=== PATIENT | female | born 1995 | race Caucasian/White ===

== ENCOUNTER 2016-10-09 00:45 | Observation (INO) | payer MEDICAID, OTHER ==
[~2016-10-09] VITALS: Ht 152.4 cm; Wt 61.2 kg
[2016-10-09] MEDS ORDERED: PNV-DHA1 SGL PO (02:11)
[2016-10-09] MEDS ORDERED: TERBUTALINE 1 MG/ML VIAL SUBQ SCH (02:30)
[2016-10-09] MEDS ORDERED: ACETAMINOPHEN 325 MG TAB PO PRN (02:30)
[2016-10-09] MEDS ORDERED: ACETAMINOPHEN 325 MG TAB ONE (02:34)
[2016-10-09] MEDS ORDERED: TERBUTALINE 1 MG/ML VIAL SUBQ ONE (02:34)
== END 2016-10-09 02:43 | disposition left against medical advice (07) ==
LOC: MLD 00:45
PROVIDERS: ADMIT Obstetrics & Gynecology; ATTEND Obstetrics & Gynecology
DX: O26.899 Other specified pregnancy related conditions, unspecified trimester (principal); R10.30 Lower abdominal pain, unspecified; Z3A.00 Weeks of gestation of pregnancy not specified
CPT/HCPCS: 81000; G0378

== ENCOUNTER 2017-03-19 01:53 | Emergency (ER) | payer OTHER ==
[~2017-03-19] VITALS: Ht 154.9 cm; Wt 56.7 kg
[~2017-03-19 01:53] MED LIST: PREN1SGL25 PO
--- NOTE | 2017-03-19 01:53 | NUR ---
PATIENT BIB BLS TO ER BED 3. Addendum: 03/19/17 at 0309 by [email or web address] PATIENT BIB ALS TO ER BED 3.
--- NOTE | 2017-03-19 02:15 | NUR ---
PATIENT BEING EVALUATED BY DR. CONTI.
[2017-03-19 02:22] VITALS: BP 124/78
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
--- NOTE | 2017-03-19 03:11 | NUR ---
PT REFUSES HER BLOOD TO BE DRAWN. MARIBEL ELIZABETH NOTIFIED.
--- NOTE | 2017-03-19 04:15 | NUR ---
PT RESTING IN BED ASLEEP, ON MONITOR, VSS.
[2017-03-19 04:22] LABS: APPEARANCE,URINE CLEAR (CLEAR); BILIRUBIN,URINE NEGATIVE (NEGATIVE); BLOOD, URINE TRACE-L (NEGATIVE); COLOR,URINE YELLOW (YELLOW); LEUKOCYTE ESTERASE ,URINE NEGATIVE (NEGATIVE); NITRITE, URINE NEGATIVE (NEGATIVE); PH,URINE 5.5 (5.0-9.0); PROTEIN,URINE NEGATIVE (NEGATIVE); UGLUCOSE NEGATIVE (NEGATIVE); UROBILINOGEN,URINE 0.2 EU/dL (0.2 - 1)
[2017-03-19 04:31] LABS: BACTERIA,URINE OCCASSIONAL /HPF (None Seen); RBC,URINE 0-5 (RARE) /HPF (0-5); SQUAMOUS EPITHELIAL CELL,UR 4-10 (MOD) /LPF (0-3 (FEW)); WBC,URINE 0-5 (RARE) /HPF (0-5)
[2017-03-19 05:00] VITALS: BP 107/62
--- NOTE | 2017-03-19 05:00 | NUR ---
Patient discharged with v/s stable. Written and verbal after care instructions given and explained. Patient alert, oriented and verbalized understanding of instructions. Ambulatory with steady gait. All questions addressed prior to discharge. ID band removed. Patient advised to follow up with PMD OR RETURN TO ER IF CONDITION WORSENS. Rx of ZOFRAN, AND NORCO given. Patient educated on indication of medication including possible reaction and side effects. Opportunity to ask questions provided and answered.
== END 2017-03-19 05:00 | disposition home or self-care (01) ==
LOC: MED 01:53
DX: S06.0X9A Concussion with loss of consciousness of unspecified duration, initial encounter (principal); F10.129 Alcohol abuse with intoxication, unspecified; V89.2XXA Person injured in unspecified motor-vehicle accident, traffic, initial encounter; Y93.89 Activity, other specified; Y92.488 Other paved roadways as the place of occurrence of the external cause; Y99.8 Other external cause status
CPT/HCPCS: 70450; 71010; 81001; 81025; 99285

== ENCOUNTER 2017-08-15 12:57 | Emergency (ER) | payer OTHER ==
[~2017-08-15] VITALS: Ht 154.9 cm; Wt 54.9 kg
[2017-08-15 13:51] VITALS: BP 117/57
[2017-08-15 16:05] LABS: APPEARANCE,URINE TURBID (CLEAR); BILIRUBIN,URINE NEGATIVE (NEGATIVE); BLOOD, URINE 1+ (NEGATIVE); COLOR,URINE YELLOW (YELLOW); LEUKOCYTE ESTERASE ,URINE 2+ (NEGATIVE); NITRITE, URINE NEGATIVE (NEGATIVE); PH,URINE 5.5 (5.0-9.0); UGLUCOSE NEGATIVE (NEGATIVE)
[2017-08-15 16:17] LABS: RBC,URINE 3-10 (FEW) /HPF (0-5); WBC,URINE 80-100 /HPF (0-5)
[2017-08-15 17:17] VITALS: BP 111/65
== END 2017-08-15 17:17 | disposition home or self-care (01) ==
LOC: MED 12:57
DX: O20.0 Threatened abortion (principal); O23.41 Unspecified infection of urinary tract in pregnancy, first trimester; A60.00 Herpesviral infection of urogenital system, unspecified; Z3A.01 Less than 8 weeks gestation of pregnancy; Z79.899 Other long term (current) drug therapy
CPT/HCPCS: 76817; 81001; 87086; 99285; Q0092

== ENCOUNTER 2019-05-10 20:16 | Emergency (ER) | payer OTHER ==
[~2019-05-10] VITALS: Ht 152.4 cm; Wt 55.8 kg
[2019-05-10 20:25] VITALS: BP 111/61
--- NOTE | 2019-05-10 20:28 | NUR ---
TO LOBBY A/W BED AMBULATORY
--- NOTE | 2019-05-10 21:12 | NUR ---
PT AMBULATED TO BED 12 WITH STEADY GAIT.
--- NOTE | 2019-05-10 21:32 | NUR ---
US AT BEDSIDE
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
[2019-05-10 22:46] LABS: BASOPHILS % (AUTO) 0.2 % (0.0-2.0); EOSINOPHILS # (AUTO) 0.2 K/uL (0-0.4); EOSINOPHILS % (AUTO) 2.7 % (0.0-4.0); HEMATOCRIT 35.5 % (36-48); HEMOGLOBIN 11.5 g/dL (12.0-16.0); LYMPHOCYTES # (AUTO) 0.9 K/uL (2.5-16.5); LYMPHOCYTES % (AUTO) 10.1 % (20.5-51.1); MEAN CORPUSCULAR HEMOGLOBIN 23 pg (27-31); MEAN CORPUSCULAR HGB CONC 32 g/dL (33-37); MEAN CORPUSCULAR VOLUME 72.2 fL (80-94); MONOCYTES # (AUTO) 0.4 K/uL (0.8-1.0); MONOCYTES % (AUTO) 4.3 % (1.7-9.3); NEUTROPHILS # (AUTO) 7.3 K/uL (1.8-7.7); NEUTROPHILS % (AUTO) 82.7 % (42.2-75.2); PLATELET COUNT (AUTO) 323 K/uL (140-450); RED BLOOD CELL COUNT(AUTO) 4.91 MIL/uL (4.20-5.40); RED CELL DISTRIBUTION WIDTH 23.6 % (11.6-13.7); WHITE BLOOD COUNT (AUTO) 8.8 K/uL (4.8-10.8)
[2019-05-10] MEDS ORDERED: ACETAMINOPHEN EXTRA STRENGTH 500 MG TAB PO ONE (23:05)
[2019-05-10 23:33] LABS: APPEARANCE,URINE CLEAR (CLEAR); BILIRUBIN,URINE NEGATIVE (NEGATIVE); BLOOD, URINE NEGATIVE (NEGATIVE); COLOR,URINE YELLOW (YELLOW); LEUKOCYTE ESTERASE ,URINE NEGATIVE (NEGATIVE); NITRITE, URINE NEGATIVE (NEGATIVE); UGLUCOSE NEGATIVE (NEGATIVE)
[2019-05-10 23:44] LABS: RBC,URINE 0-5 /HPF (0-5); WBC,URINE 0-5 /HPF (0-5)
[2019-05-10 23:45] LABS: CALCIUM OXALATE CRYSTALS,UR 0-10 /HPF (None Seen)
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
[2019-05-10 23:59] VITALS: BP 116/73
--- NOTE | 2019-05-10 23:59 | NUR ---
Patient discharged with v/s stable. Written and verbal after care instructions given and explained. Patient verbalized understanding. Ambulatory with steady gait. All questions addressed prior to discharge. Advised to follow up with PMD.
== END 2019-05-10 23:59 | disposition home or self-care (01) ==
LOC: MED 20:16
DX: O26.891 Other specified pregnancy related conditions, first trimester (principal); O99.011 Anemia complicating pregnancy, first trimester; R10.9 Unspecified abdominal pain; Z3A.10 10 weeks gestation of pregnancy; Z79.899 Other long term (current) drug therapy
CPT/HCPCS: 36415; 76801; 81001; 81025; 84702; 85025; 86900; 86901; 99284; Q0092